=== PATIENT | female | born 1960 | race Caucasian/White ===

== ENCOUNTER 2023-05-24 16:28 | Emergency (ER) | payer MEDICAID ==
[~2023-05-24] VITALS: Ht 172.7 cm; Wt 81.0 kg
[2023-05-24 16:38] VITALS: O2SAT 99
[2023-05-24 17:50] LABS: BASOPHILS % 0.8 % (0.0-2.0); EOSINOPHILS % 1.9 % (0.0-5.0); HEMATOCRIT. 38.7 % (36.0-48.0); HEMOGLOBIN. 13.3 g/dL (12.0-16.0); LYMPHOCYTES % 21.9 % (20.0-50.0); MEAN CORPUSCULAR HEMOGLOBIN 29.7 pg (28.0-32.0); MEAN CORPUSCULAR HGB CONC 34.3 g/dL (31.0-37.0); MEAN CORPUSCULAR VOLUME 86.4 fL (81.0-99.0); MEAN PLATELET VOLUME 9.1 fl (7.4-10.4); MONOCYTES % 5.9 % (2.0-8.0); NEUTROPHILS % 69.5 % (40.0-76.0); PLATELET 250 x1000/uL (130-400); RED BLOOD CELL COUNT 4.48 mill/uL (4.2-5.4)
[2023-05-24 17:56] LABS: CHLORIDE 107 mEq/L (98-107); INDEX HEMOLYSI 1 (1-3); INDEX ICTERIC 1 (1-4); INDEX LIPEMIC 1 (1-3); POTASSIUM 3.8 mEq/L (3.5-5.1); SODIUM 140 mEq/L (136-145)
[2023-05-24] MEDS ORDERED: MECLIZINE 25MG TABLET PO ONE (18:00)
[2023-05-24] MEDS ORDERED: SODIUM CHLORIDE 0.9% 1,000 ML IV ONE (18:00)
[2023-05-24 18:07] LABS: ALANINE AMINOTRANSFERASE 26 IU/L (13-61); ALBUMIN 3.7 g/dL (3.4-5.0); ASPARTATE AMINOTRANSFERASE 14 IU/L (15-37); BILIRUBIN TOTAL 0.5 mg/dL (0.1-1.0); CALCIUM 8.9 mg/dL (8.5-10.1); CARBON DIOXIDE 29 mEq/L (21-32); CREATININE 0.8 mg/dL (0.6-1.3); GLUCOSE 119 mg/dL (70-105); PROTEIN TOTAL 7.9 g/dL (6.0-8.3); TROPONIN I HIGH SENSITIVITY 4 ng/L (<54); UREA NITROGEN BLOOD 18 mg/dL (7-21)
[2023-05-24] MEDS ORDERED: MECLIZINE 12.5MG TABLET PO NR (18:15)
[2023-05-24] MEDS ORDERED: MECL-159 PO (18:46)
[2023-05-24 19:30] VITALS: BP 128/70; PULSE 70; RESP 15; TEMP 98.4
== END 2023-05-24 19:52 | disposition home or self-care (01) ==
LOC: ER 16:28
DX: R42 Dizziness and giddiness (principal); E78.00 Pure hypercholesterolemia, unspecified
CPT/HCPCS: 99284; 96360; 80053; 85025; 84484; 36415; 93005; J8597; J7030

== ENCOUNTER 2025-04-07 09:46 | Emergency (ER) | payer OTHER ==
[~2025-04-07] VITALS: Ht 162.6 cm; Wt 91.0 kg
[~2025-04-07 09:46] MED LIST: MECL-299 PO
[2025-04-07 09:54] VITALS: O2SAT 96
[2025-04-07] MEDS ORDERED: ACET-2708 MT (10:50)
[2025-04-07 10:55] VITALS: BP 116/54; PULSE 85; RESP 16; TEMP 36.8; O2SAT 98
[2025-04-07] MEDS: HYDROCODONE/ACETAMINOPHEN 5/325MG TABLET PO ONE (10:55)
== END 2025-04-07 10:55 | disposition home or self-care (01) ==
LOC: ER 09:46
DX: M65.20 Calcific tendinitis, unspecified site (principal); E78.00 Pure hypercholesterolemia, unspecified; Z79.899 Other long term (current) drug therapy; Z98.890 Other specified postprocedural states
CPT/HCPCS: 73030; 99283; A4565